=== PATIENT | male | born 1935 | race Caucasian/White ===

== ENCOUNTER 2017-05-23 05:41 | Emergency (ER) | payer MEDICARE, MEDICAID ==
--- NOTE | 2017-05-23 06:07 | EDM.PDOC ---
<Concepcion Joyce - Last Filed: 05/23/17 06:16> ED HPI GENERAL MEDICAL PROBLEM - General Chief Complaint: Back Pain or Injury Stated Complaint: BACK AND SIDE PAIN Time Seen by Provider: 05/23/17 06:00 Source of Information: Reports: Patient History Limitations: Reports: No Limitations - History of Present Illness INITIAL COMMENTS - FREE TEXT/NARRATIVE: c/o sudden onset of right flank pain that woke him from sleep, worse with movement getting out of bed and putting on shoes. 10/10 at onset, now 5/10 after taking 2 aspirin and rubbing "arther" cream on it. Hx back problems and gets periodic cortisone injections to back.Usual pain lower right and into hip. Denies any change in activity, no recent falls. 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 Right Middle Back Pain Score (Numeric/FACES): 5 - Related Data Allergies Allergy/AdvReac Type Severity Reaction Status Date / Time No Known Allergies Allergy Verified 05/23/17 05:54 Home Meds: Home Meds Amiodarone [Cordarone] 200 mg PO DAILY 04/20/16 [History] Balsalazide Disodium 750 mg PO BID 04/20/16 [History] Folic Acid 1 mg PO DAILY 04/20/16 [History] Furosemide 20 mg PO DAILY 04/20/16 [History] Gabapentin [Neurontin] 300 mg ORAL.INH DAILY 04/20/16 [History] Metoprolol Tartrate 25 mg PO DAILY 04/20/16 [History] Nitroglycerin 0.4 mg SL ASDIRECTED PRN 04/20/16 [History] Omeprazole 20 mg PO DAILY 04/20/16 [History] Simvastatin [Zocor] 10 mg PO BEDTIME 04/20/16 [History] Past Medical History HEENT History: Reports: Hard of Hearing, Impaired Vision Cardiovascular History: Reports: Heart Failure, High Cholesterol, Hypertension Gastrointestinal History: Reports: Colon Polyp Musculoskeletal History: Reports: Back Pain, Chronic Other Musculoskeletal History: crushed vertabrea Neurological History: Reports: Migraines - Past Surgical History Cardiovascular Surgical History: Reports: Coronary Artery Stent, Pacer GI Surgical History: Reports: Appendectomy Musculoskeletal Surgical History: Reports: Other (See Below) Other Musculoskeletal Surgeries/Procedures:: 2 back surgeries Social & Family History - Tobacco Use Smoking Status *Q: Never Smoker Second Hand Smoke Exposure: No - Caffeine Use Caffeine Use: Reports: Coffee - Recreational Drug Use Recreational Drug Use: No ED ROS GENERAL - Review of Systems Review Of Systems: ROS reveals no pertinent complaints other than HPI. Constitutional: Denies: Fever, Chills, Weakness ED EXAM,LOWER BACK PAIN/INJURY - Physical Exam Exam: See Below Exam Limited By: No Limitations General Appearance: Alert, Obese Eye Exam: Bilateral Eye: EOMI (glasses) Ears: Hearing Loss Throat/Mouth: Normal Inspection Head: Atraumatic, Normocephalic Neck: Normal Inspection Respiratory/Chest: No Respiratory Distress, Lungs Clear, Normal Breath Sounds Cardiovascular: Normal Peripheral Pulses, Regular Rate, Rhythm GI/Abdominal: Normal Bowel Sounds, Soft, Non-Tender Back Exam: Paraspinal Tenderness (rigt). No: CVA Tenderness (L), CVA Tenderness (R), Vertebral Tenderness Extremities: Normal Inspection, Normal Range of Motion, Non-Tender. No: Leg Pain Neurological: Alert, Normal Mood/Affect, Oriented x 3. No: Straight Leg Raise ( L), Straight Leg Raise (R), Saddle Anesthesia, Difficulty Walking Psychiatric: Normal Affect Skin Exam: Warm, Dry, Intact, Normal Color Course - Vital Signs Last Recorded V/S: Last Vital Signs Temp 97.7 F 05/23/17 06:36 Pulse 60 05/23/17 06:36 Resp 16 05/23/17 06:36 BP 128/71 05/23/17 06:37 Pulse Ox 96 05/23/17 06:36 - Orders/Labs/Meds Orders: Active Orders 24 hr Category Date Time Status Orphenadrine [Norflex] Med 05/23/17 07:45 Active 60 mg IM Q12H Medication Orders Orphenadrine Citrate (Norflex) 60 mg IM Q12H [facility] Last Admin: 05/23/17 07:43 Dose: 60 mg Labs: Laboratory Tests 05/23/17 Range/Units 05:55 Urine Color Dark yellow (YELLOW) Urine Appearance Cloudy (CLEAR) Urine pH 6.5 (5.0-9.0) Ur Specific [place] 1.025 (1.005-1.030) Urine Protein Negative (NEGATIVE) Urine Glucose (UA) Negative (NEGATIVE) Urine Ketones Negative (NEGATIVE) Urine Occult Blood Negative (NEGATIVE) Urine Nitrite Negative (NEGATIVE) Urine Bilirubin Negative (NEGATIVE) Urine Urobilinogen 0.2 (0.2-1.0) mg/dL Ur Leukocyte Esterase Negative (NEGATIVE) Urine RBC 0-5 /HPF Urine WBC 0-5 (0-5/HPF) /HPF Ur Epithelial Cells Few /HPF Urine Bacteria Rare (0-FEW/HPF) /HPF Hyaline Casts Few H /LPF Urine Mucus Many H /LPF Urine Yeast Rare H (0/HPF) /HPF Meds: Medications Generic Name Dose Route Start Last Admin Trade Name Freq PRN Reason Stop Dose Admin Orphenadrine Citrate 60 mg 05/23/17 07:45 05/23/17 07:43 Norflex IM 60 mg Q12H JESÚS Administration Discontinued Medications Generic Name Dose Route Start Last Admin Trade Name Freq PRN Reason Stop Dose Admin Ketorolac Tromethamine 60 mg 05/23/17 07:31 05/23/17 07:40 Toradol IM 05/23/17 07:32 60 mg ONETIME ONE Administration Oxycodone/Acetaminophen 1 tab 05/23/17 07:30 Percocet 325-5 Mg PO 05/23/17 07:31 ONETIME ONE Departure - Departure Disposition: Home, Self-Care 01 Clinical Impression: Chronic back pain Qualifiers: Back pain location: low back pain Back pain laterality: right Sciatica presence : without sciatica Qualified Code(s): M54.5 - Low back pain; G89.29 - Other chronic pain; G89.29 - Other chronic pain - Discharge Information Instructions: Back Pain, Adult, [id number], Muscle Strain, [id number] Forms: ED Department Discharge Additional Instructions: Follow up with your primary care facility for your injections. Ibuprofen as directed for pain. Be sure to take with food. Rest, ice and heat to the area as tolerated. - My Orders Last 24 Hours: My Active Orders 05/23/17 07:45 Orphenadrine [Norflex] 60 mg IM Q12H - Assessment/Plan Last 24 Hours: My Active Orders 05/23/17 07:45 Orphenadrine [Norflex] 60 mg IM Q12H <Marva Acevedo - Last Filed: 05/23/17 07:52> Departure - Departure Time of Disposition: 07:50
[2017-05-23 06:37] VITALS: BP 128/71
[2017-05-23] MEDS ORDERED: Acetaminophen/oxyCODONE 325-5 MG Tab PO ONE (07:30)
[2017-05-23] MEDS ORDERED: Ketorolac 30 MG/ML SDV IM ONE (07:31)
== END 2017-05-23 08:06 | disposition home or self-care (01) ==
LOC: DL.ED 05:41
DX: G89.29 Other chronic pain (principal); M54.5 Low back pain; I11.0 Hypertensive heart disease with heart failure; I50.9 Heart failure, unspecified; Z79.899 Other long term (current) drug therapy
CPT/HCPCS: 72131; 81001; 96372; 99284; J1885; J2360; 99283

== ENCOUNTER 2017-10-11 14:16 | Emergency (ER) | payer MEDICARE, MEDICAID ==
[2017-10-11 14:23] VITALS: BP 129/77
[2017-10-11] MEDS ORDERED: Dexamethasone 4 MG/ML SDV IM ONE (15:00)
--- NOTE | 2017-10-11 15:34 | EDM.PDOC ---
Scribed by Anitra Salgado 10/11/17 1534 for Rober Silva MD ED HPI GENERAL MEDICAL PROBLEM - General Chief Complaint: Lower Extremity Injury/Pain Stated Complaint: RT HIP PAIN Time Seen by Provider: 10/11/17 14:49 Source of Information: Reports: Patient, RN, RN Notes Reviewed History Limitations: Reports: No Limitations - History of Present Illness INITIAL COMMENTS - FREE TEXT/NARRATIVE: Patient presents to ER with complaint of right hip pain without acute injury. Patient with long history of lumbar disease and underwent epidural steroid injections June 2017. 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 Pain radiates through the buttock to the right foot. Denies loss of bowel or bladder control, saddle numbness or motor weakness. Onset: Gradual Duration: Constant, Getting Worse Location: Reports: Lower Extremity, Right Quality: Reports: Ache, Same as Previous Episode Severity: Severe Improves with: Reports: None Worsens with: Reports: None, Movement Associated Symptoms: Reports: No Other Symptoms Right Hip Pain Score (Numeric/FACES): 10 - Related Data Allergies Allergy/AdvReac Type Severity Reaction Status Date / Time No Known Allergies Allergy Verified 10/11/17 14:26 Home Meds: Home Meds Amiodarone [Cordarone] 200 mg PO DAILY 04/20/16 [History] Balsalazide Disodium 750 mg PO BID 04/20/16 [History] Folic Acid 1 mg PO DAILY 04/20/16 [History] Furosemide 20 mg PO DAILY 04/20/16 [History] Gabapentin [Neurontin] 300 mg ORAL.INH DAILY 04/20/16 [History] Metoprolol Tartrate 25 mg PO DAILY 04/20/16 [History] Nitroglycerin 0.4 mg SL ASDIRECTED PRN 04/20/16 [History] Omeprazole 20 mg PO DAILY 04/20/16 [History] Simvastatin [Zocor] 10 mg PO BEDTIME 04/20/16 [History] Past Medical History HEENT History: Reports: Hard of Hearing, Impaired Vision Cardiovascular History: Reports: Heart Failure, High Cholesterol, Hypertension Gastrointestinal History: Reports: Colon Polyp Musculoskeletal History: Reports: Back Pain, Chronic Other Musculoskeletal History: crushed vertabrea Neurological History: Reports: Migraines - Past Surgical History Cardiovascular Surgical History: Reports: Coronary Artery Stent, Pacer GI Surgical History: Reports: Appendectomy Musculoskeletal Surgical History: Reports: Other (See Below) Other Musculoskeletal Surgeries/Procedures:: 2 back surgeries Social & Family History - Family History Family Medical History: Noncontributory - Tobacco Use Smoking Status *Q: Never Smoker Second Hand Smoke Exposure: No - Caffeine Use Caffeine Use: Reports: Coffee - Recreational Drug Use Recreational Drug Use: No Review of Systems - Review of Systems Review Of Systems: ROS reveals no pertinent complaints other than HPI. ED EXAM, GENERAL - Physical Exam Exam: See Below Exam Limited By: No Limitations General Appearance: Alert, WD/WN, No Apparent Distress, Obese Head: Atraumatic, Normocephalic Neck: Normal Inspection, Supple, Non-Tender, Full Range of Motion Respiratory/Chest: No Respiratory Distress, Lungs Clear, Normal Breath Sounds, No Accessory Muscle Use, Chest Non-Tender Cardiovascular: Normal Peripheral Pulses, Regular Rate, Rhythm, No Edema, No Gallop, No JVD, No Murmur, No Rub GI/Abdominal: Normal Bowel Sounds, Soft, Non-Tender, No Distention, No Abnormal Bruit (Male) Exam: Deferred Rectal (Males) Exam: Deferred Back Exam: Decreased Range of Motion (lumbar/LS), Muscle Spasm, Paraspinal Tenderness. No: CVA Tenderness (L), CVA Tenderness (R), Vertebral Tenderness Extremities: Normal Inspection, Normal Range of Motion, Non-Tender, Normal Capillary Refill, No Pedal Edema Neurological: Alert, Oriented, Normal Cognition, No Motor/Sensory Deficits, Other (antalgic gait due to pain. Positive right straight leg raise. ) Psychiatric: Normal Affect, Normal Mood Skin Exam: Warm, Dry, Intact, Normal Color, No Rash Course - Vital Signs Last Recorded V/S: Last Vital Signs Temp 36.6 C 10/11/17 14:21 Pulse 62 10/11/17 14:21 Resp 16 10/11/17 14:21 BP 129/77 10/11/17 14:21 Pulse Ox 97 10/11/17 14:21 - Orders/Labs/Meds Orders: Active Orders 24 hr Category Date Time Status Hip Min 2V or 3V w Pelvis Rt [CR] Stat Exams 10/11/17 14:55 Ordered Lumbar Spine 2 or 3V [CR] Stat Exams 10/11/17 14:55 Taken Meds: Medications Discontinued Medications Generic Name Dose Route Start Last Admin Trade Name Freq PRN Reason Stop Dose Admin Dexamethasone 10 mg 10/11/17 15:00 10/11/17 15:26 Dexamethasone IM 10/11/17 15:01 10 mg ONETIME ONE Administration Orphenadrine Citrate 60 mg 10/11/17 14:59 10/11/17 15:27 Norflex IM 10/11/17 15:00 60 mg ONETIME ONE Administration - Radiology Interpretation Free Text/Narrative:: Lumbar spine x-ray: No fractures. No acute compression. Chronic degenerative changes. See rad report. Right hip and pelvis: No fracture.Mild chronic arthritic changes. See rad report. Departure - Departure Time of Disposition: 15:27 Disposition: Home, Self-Care 01 Condition: Fair Clinical Impression: Lumbar radiculopathy - Discharge Information Instructions: Sciatica, [id number] Forms: ED Department Discharge Additional Instructions: RX: Hydrocodone 5mg/325mg. *DO NOT DRIVE OR OPERATE equipment while under the influence of this medication. Use a stool softener and/or eat prunes to avoid constipation while taking the pain medication. RX: Decadron 4mg. RX: Orpheradrine 100mg. Follow up with your primary doctor for recheck next week. - My Orders Last 24 Hours: My Active Orders 10/11/17 14:55 Hip Min 2V or 3V w Pelvis Rt [CR] Stat Lumbar Spine 2 or 3V [CR] Stat - Assessment/Plan Last 24 Hours: My Active Orders 10/11/17 14:55 Hip Min 2V or 3V w Pelvis Rt [CR] Stat Lumbar Spine 2 or 3V [CR] Stat I have read and agree with the documentation that has been completed regarding this visit. By signing this record, I attest that the documentation was completed in my physical presence and is an accurate record of the encounter.
== END 2017-10-11 15:46 | disposition home or self-care (01) ==
LOC: DL.ED 14:16
DX: M54.16 Radiculopathy, lumbar region (principal); I11.0 Hypertensive heart disease with heart failure; I50.9 Heart failure, unspecified; E78.00 Pure hypercholesterolemia, unspecified; Z79.899 Other long term (current) drug therapy
CPT/HCPCS: 72100; 73502; 96372; 99283; J1100; J2360

== ENCOUNTER 2018-02-28 06:55 | Emergency (ER) | payer MEDICARE, MEDICAID ==
[2018-02-28] MEDS ORDERED: Aspirin 81 MG Tab.Chew PO ONE (07:01)
[2018-02-28] MEDS ORDERED: Sodium Chloride 0.9% 10 ML Syringe FLUSH PRN (07:02)
[2018-02-28 07:04] VITALS: BP 141/82
[2018-02-28 07:59] LABS: ANION GAP 10.8; CHLORIDE,CL 106 mmol/L (101-111); SODIUM,NA 139 mmol/L (135-145)
[2018-02-28] MEDS ORDERED: Ketorolac 30 MG/ML SDV IVPUSH ONE (08:03)
--- NOTE | 2018-02-28 08:05 | EDM.PDOC ---
ED HPI GENERAL MEDICAL PROBLEM - General Chief Complaint: Chest Pain Stated Complaint: PAIN IN BACK TO SHOULDERS AND FRONT Time Seen by Provider: 02/28/18 07:15 Source of Information: Reports: Patient, RN, RN Notes Reviewed History Limitations: Reports: No Limitations - History of Present Illness INITIAL COMMENTS - FREE TEXT/NARRATIVE: Patient presents to ER with complaint of pain in the back for "a while" Today increased pain in back, shoulders to chest and neck. This began at 0530. Rates pain 10/10 this morning, 5/10 right now. States he has not worked for 2 days. He was driving a tractor 2 days ago. Onset: Today, Gradual Duration: Constant Location: Reports: Back Quality: Reports: Ache Severity: Moderate Improves with: Reports: None Worsens with: Reports: None Associated Symptoms: Reports: No Other Symptoms Bilateral Shoulder Pain Score (Numeric/FACES): 6 - Related Data Allergies Allergy/AdvReac Type Severity Reaction Status Date / Time No Known Allergies Allergy Verified 02/28/18 07:04 Home Meds: Home Meds Amiodarone [Cordarone] 200 mg PO DAILY 04/20/16 [History] Balsalazide Disodium 750 mg PO BID 04/20/16 [History] Folic Acid 1 mg PO DAILY 04/20/16 [History] Furosemide 20 mg PO DAILY 04/20/16 [History] Gabapentin [Neurontin] 300 mg ORAL.INH DAILY 04/20/16 [History] Metoprolol Tartrate 25 mg PO DAILY 04/20/16 [History] Nitroglycerin 0.4 mg SL ASDIRECTED PRN 04/20/16 [History] Omeprazole 20 mg PO DAILY 04/20/16 [History] Simvastatin [Zocor] 10 mg PO BEDTIME 04/20/16 [History] Past Medical History HEENT History: Reports: Hard of Hearing, Impaired Vision Cardiovascular History: Reports: Heart Failure, High Cholesterol, Hypertension Gastrointestinal History: Reports: Colon Polyp Musculoskeletal History: Reports: Back Pain, Chronic Other Musculoskeletal History: crushed vertabrea Neurological History: Reports: Migraines - Past Surgical History Cardiovascular Surgical History: Reports: Coronary Artery Stent, Pacer GI Surgical History: Reports: Appendectomy Musculoskeletal Surgical History: Reports: Other (See Below) Other Musculoskeletal Surgeries/Procedures:: 2 back surgeries Social & Family History - Family History Family Medical History: Noncontributory - Tobacco Use Smoking Status *Q: Never Smoker Second Hand Smoke Exposure: No - Caffeine Use Caffeine Use: Reports: Coffee - Recreational Drug Use Recreational Drug Use: No ED ROS GENERAL - Review of Systems Review Of Systems: ROS reveals no pertinent complaints other than HPI. ED EXAM, GENERAL - Physical Exam Exam: See Below Exam Limited By: No Limitations General Appearance: Alert, WD/WN, No Apparent Distress Eye Exam: Bilateral Eye: EOMI, Normal Inspection, PERRL Ears: Normal External Exam, Normal Canal, Hearing Grossly Normal, Normal TMs Nose: Normal Inspection, Normal Mucosa, No Blood Throat/Mouth: Normal Inspection, Normal Lips, Normal Teeth, Normal Gums, Normal Oropharynx, Normal Voice, No Airway Compromise Head: Atraumatic, Normocephalic Neck: Other (tense tender bilateral) Respiratory/Chest: No Respiratory Distress, Lungs Clear, Normal Breath Sounds, No Accessory Muscle Use, Chest Non-Tender Cardiovascular: Normal Peripheral Pulses, Regular Rate, Rhythm, No Edema, No Gallop, No JVD, No Murmur, No Rub GI/Abdominal: Normal Bowel Sounds, Soft, Non-Tender, No Organomegaly, No Distention, No Abnormal Bruit, No Mass (Male) Exam: Deferred Rectal (Males) Exam: Deferred Extremities: Other (muscle tension shoulders/neck) Neurological: Alert, Oriented, CN II-XII Intact, Normal Cognition, Normal Gait, Normal Reflexes, No Motor/Sensory Deficits Psychiatric: Normal Affect, Normal Mood Skin Exam: Warm, Dry, Intact, Normal Color, No Rash Lymphatic: No Adenopathy EKG INTERPRETATION EKG Date: 02/28/18 Time: 06:59 Rhythm: Other (atrial sensed, Vent paced) Rate (Beats/Min): 60 Comparison: No Change Course - Vital Signs Last Recorded V/S: Last Vital Signs Temp 97 F 02/28/18 06:58 Pulse 78 02/28/18 06:58 Resp 18 02/28/18 06:58 BP 141/82 H 02/28/18 06:58 Pulse Ox 95 02/28/18 06:58 - Orders/Labs/Meds Orders: Active Orders 24 hr Category Date Time Status EKG Documentation Completion [RC] STAT Care 02/28/18 07:02 Active Peripheral IV Care [RC] . DIRECTED Care 02/28/18 07:03 Active Chest 1V Frontal [CR] Stat Exams 02/28/18 07:03 Taken Peripheral IV Insertion Adult [OM.PC] Stat Oth 02/28/18 07:02 Ordered Labs: Laboratory Tests 02/28/18 02/28/18 Range/Units 07:12 07:12 WBC 5.7 (5.0-10.0) 10^3/uL RBC 4.66 (4.6-6.2) 10^6/uL Hgb 13.9 L (14.0-18.0) g/dL Hct 43.2 (40.0-54.0) % MCV 92.7 (80-100) fL MCH 29.8 (27.0-34.0) pg MCHC 32.2 L (33.0-35.0) g/dL Plt Count 180 (150-450) 10^3/uL Neut % (Auto) 55.2 (42.2-75.2) % Lymph % (Auto) 28.7 (20.5-50.1) % [place] % (Auto) 10.3 H (2-8) % Eos % (Auto) 5.4 H (1.0-3.0) % Baso % (Auto) 0.4 (0.0-1.0) % Sodium 139 (135-145) mmol/L Potassium 3.8 (3.6-5.0) mmol/L Chloride 106 (101-111) mmol/L Carbon Dioxide 26.0 (21.0-31.0) mmol/L Anion Gap 10.8 BUN 13 (7-18) mg/dL Creatinine 0.8 (0.6-1.3) mg/dL Est Cr Clr Drug Dosing 77.13 mL/min Estimated GFR (MDRD) > 60 BUN/Creatinine Ratio 16.25 Glucose 101 (74-105) mg/dL Calcium 8.7 (8.4-10.2) mg/dl Total Bilirubin 0.6 (0.2-1.0) mg/dL AST 25 (10-42) IU/L ALT 15 (10-60) IU/L Alkaline Phosphatase 53 (42-121) IU/L Troponin I < 0.02 (0.00-0.02) ng/ml Total Protein 6.7 (6.7-8.2) g/dl Albumin 3.7 (3.2-5.5) g/dl Globulin 3.0 Albumin/Globulin Ratio 1.23 Meds: Medications Discontinued Medications Generic Name Dose Route Start Last Admin Trade Name Freq PRN Reason Stop Dose Admin Aspirin 324 mg 02/28/18 07:01 02/28/18 07:14 Aspirin PO 02/28/18 07:02 324 mg ONETIME ONE Administration Ketorolac Tromethamine 30 mg 02/28/18 08:03 02/28/18 08:14 Toradol IVPUSH 02/28/18 08:04 30 mg ONETIME ONE Administration Orphenadrine Citrate 60 mg 02/28/18 08:15 02/28/18 08:15 Norflex IM 60 mg Q12H JESÚS Administration Sodium Chloride 10 ml 02/28/18 07:02 02/28/18 07:14 Saline Flush FLUSH 10 ml ASDIRECTED PRN Administration Keep Vein Open - Radiology Interpretation Free Text/Narrative:: Chest xray: IMPRESSION: No acute abnormality. Thank you for allowing us to participate in the care of your patient. Dictated and Authenticated by: Chivo Mike MD 02/28/2018 8:29 AM Central Time ([place] & [place]) See rad report Departure - Departure Time of Disposition: 08:44 Disposition: Home, Self-Care 01 Condition: Fair Clinical Impression: Muscle strain Instructions: RICE for Routine Care of Injuries, [id number], Muscle Strain, [id number] Referrals: Ros Hood PA [Primary Care Provider] - Forms: ED Department Discharge Additional Instructions: RX: Norflex Follow up with your primary care facility Ice and heat the area as tolerated - My Orders Last 24 Hours: My Active Orders 02/28/18 07:02 EKG Documentation Completion [RC] STAT Peripheral IV Insertion Adult [OM.PC] Stat 02/28/18 07:03 Peripheral IV Care [RC] . DIRECTED Chest 1V Frontal [CR] Stat - Assessment/Plan Last 24 Hours: My Active Orders 02/28/18 07:02 EKG Documentation Completion [RC] STAT Peripheral IV Insertion Adult [OM.PC] Stat 02/28/18 07:03 Peripheral IV Care [RC] . DIRECTED Chest 1V Frontal [CR] Stat
== END 2018-02-28 09:05 | disposition home or self-care (01) ==
LOC: DL.ED 06:55
DX: S46.911A Strain of unspecified muscle, fascia and tendon at shoulder and upper arm level, right arm, initial encounter (principal); S46.912A Strain of unspecified muscle, fascia and tendon at shoulder and upper arm level, left arm, initial encounter; S16.1XXA Strain of muscle, fascia and tendon at neck level, initial encounter; I11.0 Hypertensive heart disease with heart failure; I50.9 Heart failure, unspecified; E78.00 Pure hypercholesterolemia, unspecified; Z79.899 Other long term (current) drug therapy; X58.XXXA Exposure to other specified factors, initial encounter
CPT/HCPCS: 36415; 71045; 80053; 84484; 85025; 93005; 96372; 96374; 99285; A9270; J1885; J2360; J7050

== ENCOUNTER 2019-05-10 10:13 | Emergency (ER) | payer MEDICARE, MEDICAID ==
[2019-05-10 10:48] VITALS: BP 138/86; PULSE 66
--- NOTE | 2019-05-10 11:09 | CR ---
EXAMINATION: Chest 2V SEX: Male AGE: 83 years CLINICAL HISTORY: 83-year-old male with cough. Comparison exam 28 February 2018. INTERPRETATION: Chronic mild shaggy accentuation perihilar lung markings unchanged since 28 February 2018 exam. 2. Cardiac pacemaker (2 leads intact and also unchanged). 3. Normal cardiac silhouette without pulmonary vascular congestion, cephalization, alveolar edema or dependent new pleural fluid accumulation. 4. No new lung mass or hilar lymphadenopathy. 5. Chronic hypertrophic arthritic changes dorsal spine. 6. No focal lobar pneumonia, atelectasis or collapse. 7. No pneumothorax or pneumomediastinum. CONCLUSION: Chronic bronchitis. No new signs of heart failure lung mass or lobar pneumonia.
--- NOTE | 2019-05-10 11:12 | CR ---
EXAMINATION: Sinus Comp Min 3V SEX: Male AGE: 83 years CLINICAL HISTORY: 83-year-old male complaining of sinus pain/pressure and bleeding. INTERPRETATION: 3 views) 1. Symmetric clear pneumatization of the paranasal (frontal, ethmoid, sphenoid and maxillary) sinuses. 2. No mucoperiosteal inflammation, antral mass lesion, or pathologic air-fluid levels. 3. Nasal septum is straight in the midline. 4. No foreign bodies. 5. Edentulous maxilla. Facet joint and atlantoaxial sclerosis. Upper cervical spine the unremarkable. 6. Subtle asymmetric sclerosis mastoid sinus on the left. Normal appearance right mastoid sinus. CONCLUSION: Negative paranasal sinus exam.
[2019-05-10 11:41] LABS: ANION GAP 11.3; CHLORIDE,CL 105 mmol/L (101-111); SODIUM,NA 140 mmol/L (135-145)
--- NOTE | 2019-05-10 11:48 | EDM.PDOC ---
ED HPI GENERAL MEDICAL PROBLEM - General Chief Complaint: General Stated Complaint: SINUS, CHECKED OUT SINUS BLEEDING AGAIN Time Seen by Provider: 05/10/19 11:20 Source of Information: Reports: Patient, Old Records, RN, RN Notes Reviewed History Limitations: Reports: No Limitations - History of Present Illness INITIAL COMMENTS - FREE TEXT/NARRATIVE: Patient presents with frontal sinus pressure and bleeding from his nares. Blood appears only when wiping his nose, no clots. Daughter recently going to [place] for and thought he should be checked by a doctor before he makes the trip. Denies fever, chills, chest pain, or edema. He does admit to mild cough, but no wheezing or sputum production. Duration: Chronic, Constant Location: Reports: Head, Face Quality: Reports: Ache, Burning Severity: Moderate Improves with: Reports: None Worsens with: Reports: None Associated Symptoms: Reports: No Other Symptoms - Related Data Allergies Allergy/AdvReac Type Severity Reaction Status Date / Time No Known Allergies Allergy Verified 04/20/19 10:19 Home Meds: Home Meds Amiodarone [Cordarone] 200 mg PO DAILY 04/20/16 [History] Balsalazide Disodium 750 mg PO BID 04/20/16 [History] Folic Acid 1 mg PO DAILY 04/20/16 [History] Furosemide 20 mg PO DAILY 04/20/16 [History] Gabapentin [Neurontin] 300 mg ORAL.INH DAILY 04/20/16 [History] Metoprolol Tartrate 25 mg PO DAILY 04/20/16 [History] Nitroglycerin 0.4 mg SL ASDIRECTED PRN 04/20/16 [History] Omeprazole 20 mg PO DAILY 04/20/16 [History] Simvastatin [Zocor] 20 mg PO BEDTIME 04/20/16 [History] Balsalazide Disodium 750 mg PO TID 04/20/19 [History] Donepezil HCl 10 mg PO DAILY 04/20/19 [History] Fluticasone Propionate [Flonase] 2 spray IH DAILY 04/20/19 [History] Montelukast Sodium [Singulair] 10 mg PO BEDTIME 04/20/19 [History] Warfarin Sodium [Jantoven] 10 mg PO ASDIRECTED 04/20/19 [History] Past Medical History HEENT History: Reports: Hard of Hearing, Impaired Vision, Sinusitis Cardiovascular History: Reports: Heart Failure, High Cholesterol, Hypertension, Pacemaker Gastrointestinal History: Reports: Colon Polyp Musculoskeletal History: Reports: Back Pain, Chronic Other Musculoskeletal History: crushed vertabrea Neurological History: Reports: Migraines Endocrine/Metabolic History: Reports: Obesity/BMI 30+ - Past Surgical History Cardiovascular Surgical History: Reports: Coronary Artery Stent, Pacer GI Surgical History: Reports: Appendectomy, Colonoscopy Musculoskeletal Surgical History: Reports: Other (See Below) Other Musculoskeletal Surgeries/Procedures:: 2 back surgeries Social & Family History - Family History Family Medical History: Noncontributory - Tobacco Use Smoking Status *Q: Never Smoker - Caffeine Use Caffeine Use: Reports: Coffee - Recreational Drug Use Recreational Drug Use: No - Living Situation & Occupation Occupation: Other ([employer]) ED ROS GENERAL - Review of Systems Review Of Systems: Comprehensive ROS is negative, except as noted in HPI. ED EXAM, GENERAL - Physical Exam Exam: See Below Exam Limited By: No Limitations General Appearance: Alert, WD/WN, No Apparent Distress, Anxious Eye Exam: Bilateral Eye: Normal Inspection Ears: Normal External Exam, Normal Canal, Hearing Grossly Normal, Normal TMs Nose: Other (Dry nasal mucosa, no active bleeding, no dried blood. Mildly inflammed nasal mucosa, no drainage.) Throat/Mouth: Normal Inspection, Normal Lips, Normal Teeth, Normal Gums, Normal Oropharynx, Normal Voice, No Airway Compromise Head: Atraumatic, Normocephalic Neck: Normal Inspection, Supple, Non-Tender, Full Range of Motion Respiratory/Chest: No Respiratory Distress, Lungs Clear, Normal Breath Sounds, No Accessory Muscle Use, Chest Non-Tender Cardiovascular: Regular Rate, Rhythm, No Edema GI/Abdominal: Normal Bowel Sounds, Soft, Non-Tender, No Distention Back Exam: Normal Inspection Extremities: Normal Inspection, Normal Range of Motion, Non-Tender, No Pedal Edema, Normal Capillary Refill Neurological: Alert, Oriented, Normal Cognition, No Motor/Sensory Deficits Psychiatric: Anxious Skin Exam: Warm, Dry, Intact, Normal Color, No Rash Course - Vital Signs Last Recorded V/S: Last Vital Signs Temp 97.4 F 05/10/19 10:44 Pulse 66 05/10/19 10:44 Resp 14 05/10/19 10:44 BP 138/86 05/10/19 10:44 Pulse Ox 98 05/10/19 10:44 - Orders/Labs/Meds Labs: Laboratory Tests 05/10/19 05/10/19 05/10/19 Range/Units 10:40 10:40 10:40 WBC 7.8 (5.0-10.0) 10^3/uL RBC 4.75 (4.6-6.2) 10^6/uL Hgb 14.5 (14.0-18.0) g/dL Hct 43.6 (40.0-54.0) % MCV 91.8 (80-100) fL MCH 30.5 (27.0-34.0) pg MCHC 33.3 (33.0-35.0) g/dL Plt Count 191 (150-450) 10^3/uL Neut % (Auto) 62.2 (42.2-75.2) % Lymph % (Auto) 18.1 L (20.5-50.1) % [place] % (Auto) 13.9 H (2-8) % Eos % (Auto) 5.4 H (1.0-3.0) % Baso % (Auto) 0.4 (0.0-1.0) % PT 25.6 H (9.0-12.0) SEC INR 2.6 H (0.9-1.2) Sodium 140 (135-145) mmol/L Potassium 4.3 (3.6-5.0) mmol/L Chloride 105 (101-111) mmol/L Carbon Dioxide 28.0 (21.0-31.0) mmol/L Anion Gap 11.3 BUN 17 (7-18) mg/dL Creatinine 0.9 (0.6-1.3) mg/dL Est Cr Clr Drug Dosing 65.34 mL/min Estimated GFR (MDRD) > 60 BUN/Creatinine Ratio 18.88 Glucose 96 (74-105) mg/dL Calcium 9.2 (8.4-10.2) mg/dl Total Bilirubin 1.1 H (0.2-1.0) mg/dL AST 27 (10-42) IU/L ALT 18 (10-60) IU/L Alkaline Phosphatase 52 (42-121) IU/L Total Protein 7.3 (6.7-8.2) g/dl Albumin 3.8 (3.2-5.5) g/dl Globulin 3.5 Albumin/Globulin Ratio 1.09 Departure - Departure Time of Disposition: 11:50 Disposition: Home, Self-Care 01 Condition: Good Clinical Impression: Nasal dryness, Sinus pain - Discharge Information *PRESCRIPTION DRUG MONITORING PROGRAM REVIEWED*: No *COPY OF PRESCRIPTION DRUG MONITORING REPORT IN PATIENT UYEN: No Forms: ED Department Discharge Additional Instructions: Use an over the counter nasal saline spray for moisturization. Follow up in clinic if not improving in 1 week.
== END 2019-05-10 11:58 | disposition home or self-care (01) ==
LOC: DL.ED 10:13
DX: J34.89 Other specified disorders of nose and nasal sinuses (principal); I11.0 Hypertensive heart disease with heart failure; I50.9 Heart failure, unspecified; E66.9 Obesity, unspecified; E78.00 Pure hypercholesterolemia, unspecified; Z68.34 Body mass index [BMI] 34.0-34.9, adult; Z79.01 Long term (current) use of anticoagulants; Z79.899 Other long term (current) drug therapy; Z95.0 Presence of cardiac pacemaker
CPT/HCPCS: 36415; 71046; 80053; 85025; 85610; 99282; 99283-25

== ENCOUNTER 2019-08-08 11:57 | Emergency (ER) | payer MEDICARE, MEDICAID ==
[2019-08-08] MEDS ORDERED: cefTRIAXone 1 GM, Lidocaine 1% 2.1 ML IM ONE ×2 (14:02)
--- NOTE | 2019-08-08 14:09 | EDM.PDOC ---
Scribed by Anitra Salgado 08/08/19 8800 for Rober Silva MD ED HPI GENERAL MEDICAL PROBLEM - General Chief Complaint: ENT Problem Stated Complaint: BAD SINUS Time Seen by Provider: 08/08/19 13:57 Source of Information: Reports: Patient, RN, RN Notes Reviewed History Limitations: Reports: No Limitations - History of Present Illness INITIAL COMMENTS - FREE TEXT/NARRATIVE: Patient presents to ER by POV. Patient has been watching his 4-year-old grandson who has been sick. He has a sore throat and not feeling well. Onset: Gradual Duration: Day(s): (3) Quality: Reports: Ache, Pressure Severity: Moderate Improves with: Reports: None Worsens with: Reports: None Associated Symptoms: Reports: No Other Symptoms - Related Data Allergies Allergy/AdvReac Type Severity Reaction Status Date / Time No Known Allergies Allergy Verified 04/20/19 10:19 Home Meds: Home Meds Amiodarone [Cordarone] 200 mg PO DAILY 04/20/16 [History] Balsalazide Disodium 750 mg PO BID 04/20/16 [History] Folic Acid 1 mg PO DAILY 04/20/16 [History] Furosemide 20 mg PO DAILY 04/20/16 [History] Gabapentin [Neurontin] 300 mg ORAL.INH DAILY 04/20/16 [History] Metoprolol Tartrate 25 mg PO DAILY 04/20/16 [History] Nitroglycerin 0.4 mg SL ASDIRECTED PRN 04/20/16 [History] Omeprazole 20 mg PO DAILY 04/20/16 [History] Simvastatin [Zocor] 20 mg PO BEDTIME 04/20/16 [History] Balsalazide Disodium 750 mg PO TID 04/20/19 [History] Donepezil HCl 10 mg PO DAILY 04/20/19 [History] Fluticasone Propionate [Flonase] 2 spray IH DAILY 04/20/19 [History] Montelukast Sodium [Singulair] 10 mg PO BEDTIME 04/20/19 [History] Warfarin Sodium [Jantoven] 10 mg PO ASDIRECTED 04/20/19 [History] Past Medical History HEENT History: Reports: Hard of Hearing, Impaired Vision, Sinusitis Cardiovascular History: Reports: Heart Failure, High Cholesterol, Hypertension, Pacemaker Gastrointestinal History: Reports: Colon Polyp Musculoskeletal History: Reports: Back Pain, Chronic Other Musculoskeletal History: crushed vertabrea Neurological History: Reports: Migraines Endocrine/Metabolic History: Reports: Obesity/BMI 30+ - Past Surgical History Cardiovascular Surgical History: Reports: Coronary Artery Stent, Pacer GI Surgical History: Reports: Appendectomy, Colonoscopy Musculoskeletal Surgical History: Reports: Other (See Below) Other Musculoskeletal Surgeries/Procedures:: 2 back surgeries Social & Family History - Family History Family Medical History: Noncontributory - Caffeine Use Caffeine Use: Reports: Coffee - Living Situation & Occupation Occupation: Other ([employer]) ED ROS GENERAL - Review of Systems Review Of Systems: Comprehensive ROS is negative, except as noted in HPI. ED EXAM, GENERAL - Physical Exam Exam: See Below Exam Limited By: No Limitations General Appearance: Alert, WD/WN, No Apparent Distress Eye Exam: Bilateral Eye: Normal Inspection Ears: Normal External Exam, Normal Canal, Hearing Grossly Normal, Normal TMs Nose: No Blood, Nasal Drainage (Purulent and some thin clear drainage), Other ( Injected turbinates) Throat/Mouth: Normal Lips, Normal Gums, Normal Voice, No Airway Compromise, Other (Mild pharyngeal erythema) Head: Atraumatic, Normocephalic Neck: Normal Inspection, Supple, Non-Tender, Full Range of Motion. No: Lymphadenopathy (L), Lymphadenopathy (R) Respiratory/Chest: No Respiratory Distress, Lungs Clear, Normal Breath Sounds, No Accessory Muscle Use, Chest Non-Tender Cardiovascular: Regular Rate, Rhythm Extremities: Normal Inspection Neurological: Alert, Oriented, No Motor/Sensory Deficits Psychiatric: Normal Mood Skin Exam: Warm, Dry, Intact, Normal Color, No Rash Course - Orders/Labs/Meds Orders: Active Orders 24 hr Category Date Time Status Chest 2V [CR] Urgent Exams 08/08/19 13:27 Ordered Labs: Rapid Strep: negative Influenza A/B: negative Meds: Medications Discontinued Medications Generic Name Dose Route Start Last Admin Trade Name Freq PRN Reason Stop Dose Admin Ceftriaxone Sodium 1 gm/ 0 gm 08/08/19 14:02 Lidocaine HCl 2.1 ml IM 08/08/19 14:03 ONETIME ONE Departure - Departure Time of Disposition: 14:05 Disposition: Home, Self-Care 01 Condition: Good Clinical Impression: Pharyngitis Qualifiers: Pharyngitis/tonsillitis etiology: other specified organisms Qualified Code(s): J02.8 - Acute pharyngitis due to other specified organisms Sinusitis Qualifiers: Sinusitis location: unspecified location Chronicity: subacute Qualified Code(s) : J01.90 - Acute sinusitis, unspecified - Discharge Information *PRESCRIPTION DRUG MONITORING PROGRAM REVIEWED*: Not Applicable *COPY OF PRESCRIPTION DRUG MONITORING REPORT IN PATIENT UYEN: Not Applicable Instructions: Pharyngitis, Sinusitis, Adult, [id number] Forms: ED Department Discharge Additional Instructions: Rx: Augmentin 875mg [place] gargles until sore throat improves. Follow up in clinic if not improving in 3 to 5 days. Sepsis Event Note - Focused Exam Date Exam was Performed: 08/08/19 Time Exam was Performed: 14:09 - My Orders Last 24 Hours: My Active Orders 08/08/19 13:27 Chest 2V [CR] Urgent - Assessment/Plan Last 24 Hours: My Active Orders 08/08/19 13:27 Chest 2V [CR] Urgent I have read and agree with the documentation that has been completed regarding this visit. By signing this record, I attest that the documentation was completed in my physical presence and is an accurate record of the encounter.
[2019-08-08 14:26] VITALS: BP 142/63; PULSE 89
== END 2019-08-08 14:40 | disposition home or self-care (01) ==
LOC: DL.ED 11:57
DX: J01.90 Acute sinusitis, unspecified (principal); J02.8 Acute pharyngitis due to other specified organisms; I11.0 Hypertensive heart disease with heart failure; I50.9 Heart failure, unspecified; E78.00 Pure hypercholesterolemia, unspecified; E66.9 Obesity, unspecified; Z79.899 Other long term (current) drug therapy
CPT/HCPCS: 71046; 87430; 87804; 96372; 99283; J0696; J2001

== ENCOUNTER 2019-08-23 06:07 | Day surgery (SDC) | payer MEDICARE, MEDICAID ==
[~2019-08-23 06:07] MED LIST: Sodium Chloride 0.9% 10 ML Syringe FLUSH PRN
[2019-08-23] MEDS ORDERED: fentaNYL 100 MCG/2 ML SDV IV ONE (06:08)
[2019-08-23] MEDS ORDERED: Midazolam 1 MG/ML 2 ML SDV IV ONE ×2 (06:08)
[2019-08-23] MEDS ORDERED: fentaNYL 100 MCG/2 ML SDV ONE (06:13)
[2019-08-23] MEDS ORDERED: Midazolam 1 MG/ML 2 ML SDV ONE (06:13)
[2019-08-23] MEDS: Dextrose 5%-0.45% NaCl 1,000 ML IV SCH (06:36)
[2019-08-23] MEDS: fentaNYL 100 MCG/2 ML SDV IV ONE ×2 (06:54→06:56)
[2019-08-23] MEDS: Midazolam 1 MG/ML 2 ML SDV IV ONE ×3 (06:57→06:59)
--- NOTE | 2019-08-23 08:02 | OR ---
DATE: 08/23/2019 PROCEDURE: Total colonoscopy and multiple pinch biopsies. INSTRUMENT USED: PCF-H190DL Olympus video colonoscope. PREMEDICATIONS: Fentanyl 100 mcg intravenous, Versed 5 mg intravenous. Nasal O2 cannula. The procedure was done under pulse oximetry, BP recording, and counseling department chair. INDICATION: The patient with longstanding ulcerative colitis, with increasing constipation recently. Colonoscopic examination is done for detection of any polypoid lesions and removal, biopsies to be obtained for any evidence of dysplasia, endoscopic hemostasis therapy if needed. DESCRIPTION OF PROCEDURE: Initial rectal exam showed BPH. Rigid anoscopy was normal. The colonoscope was passed with ease. Scattered diverticula were noted in the distal left colon. The scope was passed with ease up to the ileocecal area. Photographs were taken of the normal-appearing cecum, identified by landmarks of appendiceal orifice and double-bulged ileocecal folds. No bleeding was noted from any of the visualized areas at the commencement of the examination. The bowel preparation was found to be adequate, [place] scale 2 in right colon, 3 in transverse and left colon, total score 8. No stricture. No vascular ectasia. No large isolated ulcerations seen. No evidence of diffuse inflammatory bowel disease in the form of friability, contact bleeding, or ulcerations. No polyp or tumor mass identified. Probing the proximal sides of folds and flexures using adequate distention and clearing up the stool material, withdrawal of the scope was made. Four-quadrant biopsies were taken at 10 cm distance apart from the cecum to rectum, tissues obtained were pooled into bags #1 cecum and ascending colon, #2 transverse colon, #3 descending colon, #4 rectosigmoid. No bleeding was noted from any of the visualized areas at the completion of examination. IMPRESSION: Diverticulosis. The patient tolerated the procedure well. [facility] [place] /[id number]
[2019-08-23 11:55] VITALS: PULSE 60
[2019-08-23 11:56] VITALS: BP 136/77
== END 2019-08-23 09:38 | disposition home or self-care (01) ==
LOC: DL.ENDO 06:07
PROVIDERS: ATTEND Internal Medicine Gastroenterology
DX: K57.30 Diverticulosis of large intestine without perforation or abscess without bleeding (principal); N40.0 Benign prostatic hyperplasia without lower urinary tract symptoms; K59.00 Constipation, unspecified; K51.90 Ulcerative colitis, unspecified, without complications; E78.5 Hyperlipidemia, unspecified; I10 Essential (primary) hypertension; E66.09 Other obesity due to excess calories; I48.0 Paroxysmal atrial fibrillation; I25.10 Atherosclerotic heart disease of native coronary artery without angina pectoris; Z95.1 Presence of aortocoronary bypass graft; Z90.49 Acquired absence of other specified parts of digestive tract; Z98.890 Other specified postprocedural states; Z95.0 Presence of cardiac pacemaker; Z68.35 Body mass index [BMI] 35.0-35.9, adult; Z79.899 Other long term (current) drug therapy
CPT/HCPCS: 45380; J2250; J3010; J7042

== ENCOUNTER 2020-03-15 11:50 | Emergency (ER) | payer MEDICARE, MEDICAID ==
[2020-03-15] MEDS ORDERED: cefTRIAXone 1 GM, Lidocaine 1% 2.1 ML IM ONE ×2 (12:24)
--- NOTE | 2020-03-15 12:28 | EDM.PDOC ---
ED HPI GENERAL MEDICAL PROBLEM - General Chief Complaint: ENT Problem Stated Complaint: SINUS Time Seen by Provider: 03/15/20 12:15 Source of Information: Reports: Patient, Old Records, RN, RN Notes Reviewed History Limitations: Reports: No Limitations - History of Present Illness INITIAL COMMENTS - FREE TEXT/NARRATIVE: Pt presents to ER with c/o sinus infection. He states that for about 2 or 3 months he has been having to use a nasal spray because he has been working in the field dust and harvest. In the past few weeks he has been combining beans and that has really flared his sinuses. He denies fever or chills. Admits to sinus headache and pressure at the face and forehead. Denies cough, chest pain, or shortness of breath. Onset: Gradual Duration: Chronic, Getting Worse Location: Reports: Other (Sinus) Quality: Reports: Pressure Severity: Moderate Improves with: Reports: None Worsens with: Reports: None Associated Symptoms: Reports: No Other Symptoms Treatments [employer]: Reports: Home Treatments - Related Data Allergies Allergy/AdvReac Type Severity Reaction Status Date / Time No Known Allergies Allergy Verified 08/23/19 06:26 Home Meds: Home Meds Amiodarone [Cordarone] 200 mg PO DAILY 04/20/16 [History] Balsalazide Disodium 750 mg PO BID 04/20/16 [History] Folic Acid 1 mg PO DAILY 04/20/16 [History] Furosemide 20 mg PO DAILY 04/20/16 [History] Gabapentin [Neurontin] 300 mg ORAL.INH DAILY 04/20/16 [History] Metoprolol Tartrate 25 mg PO DAILY 04/20/16 [History] Nitroglycerin 0.4 mg SL ASDIRECTED PRN 04/20/16 [History] Omeprazole 20 mg PO DAILY 04/20/16 [History] Simvastatin [Zocor] 20 mg PO BEDTIME 04/20/16 [History] Balsalazide Disodium 750 mg PO TID 04/20/19 [History] Donepezil HCl 10 mg PO DAILY 04/20/19 [History] Fluticasone Propionate [Flonase] 2 spray IH DAILY 04/20/19 [History] Montelukast Sodium [Singulair] 10 mg PO BEDTIME 04/20/19 [History] Warfarin Sodium [Jantoven] 10 mg PO ASDIRECTED 04/20/19 [History] Past Medical History HEENT History: Reports: Hard of Hearing, Impaired Vision, Sinusitis Cardiovascular History: Reports: Afib, Arrhythmia, CAD, Heart Failure, High Cholesterol, Hypertension, Pacemaker Respiratory History: Reports: None Gastrointestinal History: Reports: Colon Polyp, Other (See Below) Other Gastrointestinal History: ULCERATIVE COLITIS Genitourinary History: Reports: None Musculoskeletal History: Reports: Back Pain, Chronic Other Musculoskeletal History: crushed vertabrea. CYST TO SPINE REMOVED Neurological History: Reports: Migraines Psychiatric History: Reports: None Endocrine/Metabolic History: Reports: Obesity/BMI 30+ Hematologic History: Reports: Anticoagulation Therapy Immunologic History: Reports: None Oncologic (Cancer) History: Reports: None Dermatologic History: Reports: None - Infectious Disease History Infectious Disease History: Reports: Measles - Past Surgical History Head Surgeries/Procedures: Reports: None HEENT Surgical History: Reports: None Cardiovascular Surgical History: Reports: Coronary Artery Stent, Pacer GI Surgical History: Reports: Appendectomy, Colonoscopy Musculoskeletal Surgical History: Reports: Other (See Below) Other Musculoskeletal Surgeries/Procedures:: 2 back surgeries Social & Family History - Family History Family Medical History: Noncontributory - Caffeine Use Caffeine Use: Reports: Coffee Other Caffeine Use: RARE - Living Situation & Occupation Occupation: Other ([employer]) ED ROS ENT - Review of Systems Review Of Systems: Comprehensive ROS is negative, except as noted in HPI. ED EXAM, ENT - Physical Exam Exam: See Below Exam Limited By: No Limitations General Appearance: Alert, WD/WN, No Apparent Distress Eye Exam: Bilateral Eye: EOMI, Normal Inspection, PERRL Ears: Normal External Exam, Normal Canal, Hearing Grossly Normal, Normal TMs Nose: No Blood, Nasal Discharge (yellow and purulent), Nasal Swelling, Nasal Tenderness, Injected Turbinates. No: Active Bleeding Head: Atraumatic, Normocephalic, Sinus Tenderness. No: Facial Swelling Neck: Normal Inspection, Supple, Non-Tender, Full Range of Motion. No: Lymphadenopathy (L), Lymphadenopathy (R) Respiratory/Chest: No Respiratory Distress, Lungs Clear, Normal Breath Sounds, No Accessory Muscle Use, Chest Non-Tender Cardiovascular: Regular Rate, Rhythm, No Edema Neurological: Alert, Oriented, CN II-XII Intact, Normal Cognition, No Motor/Sensory Deficits Psychiatric: Normal Affect, Normal Mood Skin: Warm, Dry, Intact, Normal Color, No Rash Course - Orders/Labs/Meds Meds: Medications Discontinued Medications Generic Name Dose Route Start Last Admin Trade Name Olimpia PRN Reason Stop Dose Admin Ceftriaxone Sodium 1 gm/ 0 gm 03/15/20 12:24 Lidocaine HCl 2.1 ml IM 03/15/20 12:25 ONETIME ONE Departure - Departure Time of Disposition: 12:39 Disposition: Home, Self-Care 01 Condition: Good Clinical Impression: Sinus pain Sinusitis Qualifiers: Sinusitis location: unspecified location Chronicity: subacute Qualified Code(s): J01.90 - Acute sinusitis, unspecified - Discharge Information *PRESCRIPTION DRUG MONITORING PROGRAM REVIEWED*: Not Applicable *COPY OF PRESCRIPTION DRUG MONITORING REPORT IN PATIENT UYEN: Not Applicable Instructions: Sinusitis, Adult, [id number], How to Perform a Sinus Rinse, [id number] Forms: ED Department Discharge Additional Instructions: Rx: Augmentin 875mg Follow up in clinic next week with your primary doctor if not improving as expected.
[2020-03-15 13:18] VITALS: BP 155/91; PULSE 76
== END 2020-03-15 13:05 | disposition home or self-care (01) ==
LOC: DL.ED 11:50
DX: J01.90 Acute sinusitis, unspecified (principal); I48.91 Unspecified atrial fibrillation; I25.10 Atherosclerotic heart disease of native coronary artery without angina pectoris; E78.00 Pure hypercholesterolemia, unspecified; I11.0 Hypertensive heart disease with heart failure; I50.9 Heart failure, unspecified; E66.9 Obesity, unspecified; Z68.35 Body mass index [BMI] 35.0-35.9, adult; Z79.899 Other long term (current) drug therapy
CPT/HCPCS: 96372; 99283; J0696; J2001

== ENCOUNTER 2020-06-23 10:20 | Emergency (ER) | payer MEDICARE, MEDICAID ==
[2020-06-23 10:52] VITALS: BP 150/105; PULSE 78
[2020-06-23] MEDS ORDERED: cefTRIAXone 1 GM, Lidocaine 1% 2.1 ML IM ONE ×2 (10:54)
--- NOTE | 2020-06-23 11:02 | EDM.PDOC ---
ED HPI GENERAL MEDICAL PROBLEM - General Chief Complaint: ENT Problem Stated Complaint: SINUS INFECTION LEFT SIDE OF FACE Time Seen by Provider: 06/23/20 10:55 Source of Information: Reports: Patient, RN, RN Notes Reviewed History Limitations: Reports: No Limitations - History of Present Illness INITIAL COMMENTS - FREE TEXT/NARRATIVE: Patient presents to the ED with complaints of left-sided sinus pressure and pain. The patient reports a history of chronic sinus infection related to a nasal fracture several years ago. He states his currently symptoms began about 14 days ago and have progressively worsened to include postnasal drainage and left-sided ear pain/pressure. He states he has not been to ENT for this problem but notes his PCP has suggested he go. He denies recent illness, fever, shaking chills, palpitations, or shortness of breath. He denies tobacco, alcohol, or recreational drug use. Face/Facial Pain Score (Numeric/FACES): 4 - Related Data Allergies Allergy/AdvReac Type Severity Reaction Status Date / Time No Known Allergies Allergy Verified 06/23/20 10:52 Home Meds: Home Meds Amiodarone [Cordarone] 200 mg PO DAILY 04/20/16 [History] Balsalazide Disodium 750 mg PO BID 04/20/16 [History] Folic Acid 1 mg PO DAILY 04/20/16 [History] Furosemide 20 mg PO DAILY 04/20/16 [History] Gabapentin [Neurontin] 300 mg ORAL.INH DAILY 04/20/16 [History] Metoprolol Tartrate 25 mg PO DAILY 04/20/16 [History] Nitroglycerin 0.4 mg SL ASDIRECTED PRN 04/20/16 [History] Omeprazole 20 mg PO DAILY 04/20/16 [History] Simvastatin [Zocor] 20 mg PO BEDTIME 04/20/16 [History] Balsalazide Disodium 750 mg PO TID 04/20/19 [History] Donepezil HCl 10 mg PO DAILY 04/20/19 [History] Fluticasone Propionate [Flonase] 2 spray IH DAILY 04/20/19 [History] Montelukast Sodium [Singulair] 10 mg PO BEDTIME 04/20/19 [History] Warfarin Sodium [Jantoven] 10 mg PO ASDIRECTED 04/20/19 [History] Past Medical History HEENT History: Reports: Hard of Hearing, Impaired Vision, Sinusitis Cardiovascular History: Reports: Afib, Arrhythmia, CAD, Heart Failure, High Cholesterol, Hypertension, Pacemaker Respiratory History: Reports: None Gastrointestinal History: Reports: Colon Polyp, Other (See Below) Other Gastrointestinal History: ULCERATIVE COLITIS Genitourinary History: Reports: None Musculoskeletal History: Reports: Back Pain, Chronic Other Musculoskeletal History: crushed vertabrea. CYST TO SPINE REMOVED Neurological History: Reports: Migraines Psychiatric History: Reports: None Endocrine/Metabolic History: Reports: Obesity/BMI 30+ Hematologic History: Reports: Anticoagulation Therapy Immunologic History: Reports: None Oncologic (Cancer) History: Reports: None Dermatologic History: Reports: None - Infectious Disease History Infectious Disease History: Reports: Measles - Past Surgical History Head Surgeries/Procedures: Reports: None HEENT Surgical History: Reports: None Cardiovascular Surgical History: Reports: Coronary Artery Stent, Pacer GI Surgical History: Reports: Appendectomy, Colonoscopy Musculoskeletal Surgical History: Reports: Other (See Below) Other Musculoskeletal Surgeries/Procedures:: 2 back surgeries Social & Family History - Family History Family Medical History: No Pertinent Family History - Caffeine Use Caffeine Use: Reports: Coffee Other Caffeine Use: RARE - Living Situation & Occupation Occupation: Other ([employer]) ED ROS ENT - Review of Systems Review Of Systems: Comprehensive ROS is negative, except as noted in HPI. ED EXAM, ENT - Physical Exam Exam: See Below Exam Limited By: No Limitations General Appearance: Alert, No Apparent Distress Eye Exam: Bilateral Eye: EOMI, Normal Inspection, PERRL (3mm) Ears: Normal External Exam, Normal Canal, Normal TMs, Hearing Loss (Hearing aid in right ear). No: Mastoid Swelling, Mastoid Tenderness, TM Bulging, TM Dullness, TM Erythema, TM Blood, TM Perforation Nose: Nasal Deformity, Septal Deformity, Injected Turbinates, Other (Frontal and maxillary sinus tenderness to palpation on left). No: Nasal Discharge, Nasal Swelling, Nasal Tenderness, Nasal Ecchymosis, Septal Hematoma, Septal Perforation, Active Bleeding Mouth/Throat: Normal Inspection, Normal Gums, Normal Lips, Normal Oropharynx, Normal Teeth Head: Atraumatic, Normocephalic, Sinus Tenderness (Left maxillary and frontal sinus). No: Facial Ecchymosis, Facial Lacerations, Facial Swelling Respiratory/Chest: No Respiratory Distress, Lungs Clear, Normal Breath Sounds, No Accessory Muscle Use, Chest Non-Tender Cardiovascular: Normal Peripheral Pulses, Regular Rate, Rhythm, No Edema, No Gallop, No JVD, No Murmur, No Rub Neurological: Alert, Oriented, CN II-XII Intact, Normal Cognition, Normal Gait, No Motor/Sensory Deficits Psychiatric: Normal Affect, Normal Mood Skin: Warm, Dry, Intact, Normal Color, No Rash. No: Ecchymosis, Erythema, Jaundice, Mottled, Pallor, Petechiae Course - Vital Signs Last Recorded V/S: Last Vital Signs Temp 97.7 F 06/23/20 10:48 Pulse 78 06/23/20 10:48 Resp 20 06/23/20 10:48 BP 150/105 H 06/23/20 10:48 Pulse Ox 96 06/23/20 10:48 - Orders/Labs/Meds Meds: Medications Discontinued Medications Generic Name Dose Route Start Last Admin Trade Name Freq PRN Reason Stop Dose Admin Ceftriaxone Sodium 1 gm/ 0 gm 06/23/20 10:54 Lidocaine HCl 2.1 ml IM 06/23/20 10:55 ONETIME ONE - Re-Assessments/Exams Free Text/Narrative Re-Assessment/Exam: 06/23/20 Will treat with Rocephin 1mg and Augmentin 875. Plan of care discussed with patient who verbalized understanding and agreement. Departure - Departure Time of Disposition: 11:06 Disposition: Home, Self-Care 01 Condition: Good Clinical Impression: Chronic sinusitis Qualifiers: Sinusitis location: unspecified location Qualified Code(s): J32.9 - Chronic sinusitis, unspecified - Discharge Information *PRESCRIPTION DRUG MONITORING PROGRAM REVIEWED*: Not Applicable *COPY OF PRESCRIPTION DRUG MONITORING REPORT IN PATIENT UYEN: Not Applicable Instructions: Sinusitis, Adult, [id number] Additional Instructions: Rx: Augmentin 875mg 1.) Take all of your antibiotic until it is gone. 2.) Follow up with a primary care provider if no improvement in symptoms in 3 days or should you develop fever, shaking chills, or shortness of breath. 3.) Drink plenty of fluids to stay hydrated. Sepsis Event Note (ED) - Evaluation Sepsis Screening Result: No Definite Risk - Focused Exam Vital Signs: Vital Signs Temp Pulse Resp BP Pulse Ox 06/23/20 10:48 97.7 F 78 20 150/105 H 96
== END 2020-06-23 11:20 | disposition home or self-care (01) ==
LOC: DL.ED 10:20
DX: J32.9 Chronic sinusitis, unspecified (principal); I48.91 Unspecified atrial fibrillation; I11.0 Hypertensive heart disease with heart failure; I50.9 Heart failure, unspecified; I25.10 Atherosclerotic heart disease of native coronary artery without angina pectoris; E78.00 Pure hypercholesterolemia, unspecified; E66.9 Obesity, unspecified; Z68.34 Body mass index [BMI] 34.0-34.9, adult; Z79.899 Other long term (current) drug therapy
CPT/HCPCS: 96372; 99283; J0696; J2001

== ENCOUNTER 2021-06-17 08:27 | Emergency (ER) | payer MEDICARE, MEDICAID ==
[2021-06-17] MEDS: Ketorolac 30 MG/ML SDV IM ONE (09:45)
--- NOTE | 2021-06-17 09:53 | EDM.PDOC ---
Scribed by Anitra Salgado 06/17/21 0950 for Rober Silva MD ED HPI GENERAL MEDICAL PROBLEM - General Chief Complaint: Back Pain or Injury Stated Complaint: BACK PAIN Time Seen by Provider: 06/17/21 09:30 Source of Information: Reports: Patient, RN, RN Notes Reviewed History Limitations: Reports: No Limitations - History of Present Illness INITIAL COMMENTS - FREE TEXT/NARRATIVE: Patient presents to ED by POV stating that his chronic back pain has flared in the last 2 weeks. The pain is described as his entire back, thoracic and lumbar. He used to have occasional jabs of pain and tingling from the low back to the right knee, but claims that has not happened with this recent back pain flare up. He was worried about taking anything because he just had his pacemaker battery replaced and is on Coumadin. No fall or injury. Denies loss of bowel or bladder control, saddle area numbness, or motor weakness. Onset: Gradual Duration: Getting Worse Location: Reports: Back Severity: Severe Improves with: Reports: None Worsens with: Reports: None Associated Symptoms: Reports: No Other Symptoms - Related Data Allergies Allergy/AdvReac Type Severity Reaction Status Date / Time No Known Allergies Allergy Verified 06/17/21 09:40 Home Meds: Home Meds Folic Acid 1 mg PO DAILY 04/20/16 [History] Furosemide 20 mg PO DAILY 04/20/16 [History] Gabapentin [Neurontin] 300 mg PO TID 04/20/16 [History] Metoprolol Tartrate 25 mg PO DAILY 04/20/16 [History] Nitroglycerin 0.4 mg SL ASDIRECTED PRN 04/20/16 [History] Omeprazole 20 mg PO DAILY 04/20/16 [History] Simvastatin [Zocor] 20 mg PO BEDTIME 04/20/16 [History] Balsalazide Disodium 750 mg PO TID 04/20/19 [History] Donepezil HCl 10 mg PO BEDTIME 04/20/19 [History] Fluticasone Propionate [Flonase] 2 spray IH DAILY 04/20/19 [History] Montelukast Sodium [Singulair] 10 mg PO BEDTIME 04/20/19 [History] Warfarin Sodium [Jantoven] 10 mg PO ASDIRECTED 04/20/19 [History] Past Medical History HEENT History: Reports: Hard of Hearing, Impaired Vision, Sinusitis Cardiovascular History: Reports: Afib, Arrhythmia, CAD, Heart Failure, High Cholesterol, Hypertension, Pacemaker Respiratory History: Reports: None Gastrointestinal History: Reports: Colon Polyp, Other (See Below) Other Gastrointestinal History: ULCERATIVE COLITIS Genitourinary History: Reports: None Musculoskeletal History: Reports: Back Pain, Chronic Other Musculoskeletal History: crushed vertabrea. CYST TO SPINE REMOVED Neurological History: Reports: Migraines Psychiatric History: Reports: None Endocrine/Metabolic History: Reports: Obesity/BMI 30+ Hematologic History: Reports: Anticoagulation Therapy Immunologic History: Reports: None Oncologic (Cancer) History: Reports: None Dermatologic History: Reports: None - Infectious Disease History Infectious Disease History: Reports: Measles - Past Surgical History Head Surgeries/Procedures: Reports: None HEENT Surgical History: Reports: None Cardiovascular Surgical History: Reports: Coronary Artery Stent, Pacer GI Surgical History: Reports: Appendectomy, Colonoscopy Musculoskeletal Surgical History: Reports: Other (See Below) Other Musculoskeletal Surgeries/Procedures:: 2 back surgeries Social & Family History - Family History Family Medical History: No Pertinent Family History - Caffeine Use Caffeine Use: Reports: None Other Caffeine Use: RARE - Living Situation & Occupation Occupation: Other ([employer]) ED ROS GENERAL - Review of Systems Review Of Systems: Comprehensive ROS is negative, except as noted in HPI. ED EXAM,LOWER BACK PAIN/INJURY - Physical Exam Exam: See Below Exam Limited By: No Limitations General Appearance: Alert, WD/WN, No Apparent Distress, Obese Throat/Mouth: Normal Voice Head: Atraumatic, Normocephalic Neck: Normal Inspection, Supple, Non-Tender Respiratory/Chest: No Respiratory Distress, Lungs Clear, Normal Breath Sounds, No Accessory Muscle Use, Chest Non-Tender Cardiovascular: Normal Peripheral Pulses, Regular Rate, Rhythm GI/Abdominal: Normal Bowel Sounds, Soft, Non-Tender Back Exam: Decreased Range of Motion, Paraspinal Tenderness (Generalized thoracic and lumbar regional tenderness). No: CVA Tenderness (L), CVA Tenderness (R), Vertebral Tenderness Extremities: Normal Inspection, Normal Range of Motion, Non-Tender, No Pedal Edema, Normal Capillary Refill Neurological: Alert, Normal Dorsiflexion, CN II-XII Intact, Normal Plantar Flexion, Normal Gait, No Motor/Sensory Deficits, Oriented x 3 Psychiatric: Normal Affect, Normal Mood Skin Exam: Warm, Dry Course - Orders/Labs/Meds Meds: Medications Discontinued Medications Generic Name Dose Route Start Last Admin Trade Name Olimpia PRN Reason Stop Dose Admin Ketorolac Tromethamine 30 mg 06/17/21 09:34 Ketorolac 30 Mg/Ml Sdv IM 06/17/21 09:35 ONETIME ONE - Re-Assessments/Exams Free Text/Narrative Re-Assessment/Exam: 06/17/21 09:45 There has been no injury, and no symptoms concerning for cauda equina syndrome or other nerve or spinal cord compromise, therefore I find no indication for x- ray or imaging in the emergency department setting at this time. Departure - Departure Time of Disposition: 09:53 Disposition: Home, Self-Care 01 Condition: Good Clinical Impression: Acute exacerbation of chronic low back pain Chronic thoracic back pain Qualifiers: Back pain laterality: bilateral Qualified Code(s): M54.6 - Pain in thoracic spine; G89.29 - Other chronic pain - Discharge Information *PRESCRIPTION DRUG MONITORING PROGRAM REVIEWED*: No *COPY OF PRESCRIPTION DRUG MONITORING REPORT IN PATIENT UYEN: No Instructions: Acute Back Pain, Adult, Chronic Pain, Adult Forms: ED Department Discharge Additional Instructions: Rx: Eldora (Hydrocodone) 5mg/325mg *Do not drive while taking this medication, it may cause drowsiness. Use a stool softener, eat prunes, or drink prune juice with this medication to avoid constipation. Light activity as tolerated. Follow up in clinic with your primary doctor next week if your back pain is not improving. I have read and agree with the documentation that has been completed regarding this visit. By signing this record, I attest that the documentation was completed in my physical presence and is an accurate record of the encounter.
[2021-06-17 09:54] VITALS: BP 130/83; PULSE 77
== END 2021-06-17 09:55 | disposition home or self-care (01) ==
LOC: DL.ED 08:27
DX: G89.29 Other chronic pain (principal); M54.50 Low back pain, unspecified; M54.6 Pain in thoracic spine; I48.91 Unspecified atrial fibrillation; I25.10 Atherosclerotic heart disease of native coronary artery without angina pectoris; I11.0 Hypertensive heart disease with heart failure; I50.9 Heart failure, unspecified; E78.00 Pure hypercholesterolemia, unspecified; E66.9 Obesity, unspecified; Z68.34 Body mass index [BMI] 34.0-34.9, adult; Z95.0 Presence of cardiac pacemaker; Z79.01 Long term (current) use of anticoagulants; Z79.899 Other long term (current) drug therapy
CPT/HCPCS: 96372; 99283; J1885; 99284

== ENCOUNTER 2021-09-18 07:16 | Emergency (ER) | payer MEDICARE, MEDICAID ==
[2021-09-18 07:42] VITALS: BP 160/99; PULSE 80
[2021-09-18] MEDS ORDERED: cefTRIAXone 1 GM, Lidocaine 1% 2.1 ML IM ONE ×2 (07:51)
== END 2021-09-18 08:08 | disposition home or self-care (01) ==
LOC: DL.ED 07:16
DX: J01.40 Acute pansinusitis, unspecified (principal); I10 Essential (primary) hypertension; E78.00 Pure hypercholesterolemia, unspecified; E66.9 Obesity, unspecified; Z68.33 Body mass index [BMI] 33.0-33.9, adult; Z79.899 Other long term (current) drug therapy
CPT/HCPCS: 96372; 99283; J0696

== ENCOUNTER 2022-05-01 06:19 | Emergency (ER) | payer MEDICARE, MEDICAID ==
[2022-05-01 06:39] VITALS: BP 159/97; PULSE 86
[2022-05-01] MEDS ORDERED: cefTRIAXone 1 GM, Lidocaine 1% 2.1 ML IM ONE ×2 (06:40)
== END 2022-05-01 06:45 | disposition home or self-care (01) ==
LOC: DL.ED 06:19
DX: J01.40 Acute pansinusitis, unspecified (principal); I11.0 Hypertensive heart disease with heart failure; I50.9 Heart failure, unspecified; I25.10 Atherosclerotic heart disease of native coronary artery without angina pectoris; I48.91 Unspecified atrial fibrillation; E78.00 Pure hypercholesterolemia, unspecified; E66.9 Obesity, unspecified; Z79.899 Other long term (current) drug therapy
CPT/HCPCS: 96372; 99283; J0696

== ENCOUNTER 2022-06-24 11:19 | Emergency (ER) | payer MEDICARE, MEDICAID ==
[2022-06-24 11:37] VITALS: BP 125/89; PULSE 82
[2022-06-24] MEDS ORDERED: methylPREDNISolone Sodium Succinate 125 MG/2 ML SDV IM ONE (12:01)
== END 2022-06-24 12:26 | disposition home or self-care (01) ==
LOC: DL.ED 11:19
DX: J01.91 Acute recurrent sinusitis, unspecified (principal); I48.91 Unspecified atrial fibrillation; I25.10 Atherosclerotic heart disease of native coronary artery without angina pectoris; I11.0 Hypertensive heart disease with heart failure; I50.9 Heart failure, unspecified; E78.00 Pure hypercholesterolemia, unspecified; E66.9 Obesity, unspecified; Z68.31 Body mass index [BMI] 31.0-31.9, adult; Z79.01 Long term (current) use of anticoagulants; Z79.899 Other long term (current) drug therapy
CPT/HCPCS: 96372; 99283; J2930

== ENCOUNTER 2023-07-08 13:35 | Emergency (ER) | payer MEDICARE, MEDICAID ==
[2023-07-08 14:19] VITALS: BP 109/80; PULSE 78
== END 2023-07-08 15:44 | disposition home or self-care (01) ==
LOC: DL.ED 13:35
DX: R60.0 Localized edema (principal); I11.0 Hypertensive heart disease with heart failure; I50.9 Heart failure, unspecified; I25.10 Atherosclerotic heart disease of native coronary artery without angina pectoris; E78.00 Pure hypercholesterolemia, unspecified; I48.91 Unspecified atrial fibrillation; E66.9 Obesity, unspecified; Z79.01 Long term (current) use of anticoagulants; Z79.899 Other long term (current) drug therapy; Z95.1 Presence of aortocoronary bypass graft
CPT/HCPCS: 99283

== ENCOUNTER 2024-06-12 12:24 | Emergency (ER) | payer MEDICARE, MEDICAID ==
[2024-06-12 12:39] VITALS: BP 140/80; PULSE 87
[2024-06-12 13:13] LABS: BASOPHILS PERCENT AUTO 0.3 % (0.0-1.0); EOSINOPHILS PERCENT AUTO 2.9 % (1.0-3.0); HEMATOCRIT 36.9 % (40.0-54.0); HEMOGLOBIN 12.1 g/dL (14.0-18.0); LYMPHOCYTES PERCENT AUTO 13.4 % (20.5-50.1); MEAN CORPUSCULAR HEMOGLOBIN 31.3 pg (27.0-34.0); MEAN CORPUSCULAR HGB CONC 32.8 g/dL (33.0-35.0); MEAN CORPUSCULAR VOLUME 95.6 fL (80-100); MONOCYTES PERCENT AUTO 11.2 % (2-8); NEUTROPHILS PERCENT AUTO 72.2 % (42.2-75.2); PLATELET COUNT,PLT 206 10^3/uL (150-450); RED BLOOD CELL COUNT 3.86 10^6/uL (4.6-6.2)
[2024-06-12] MEDS: Cefuroxime 250 MG Tab PO ONE (13:23)
[2024-06-12 13:31] LABS: INR 1.1 (0.9-1.2); PROTHROMBIN TIME 11.4 SEC (9.0-12.0); PTT,PARTIAL THROMBOPLSTIN TIME 23.2 SEC (22.0-34.0)
== END 2024-06-12 13:45 | disposition home or self-care (01) ==
LOC: DL.ED 12:24
DX: R04.0 Epistaxis (principal); J01.91 Acute recurrent sinusitis, unspecified; I48.91 Unspecified atrial fibrillation; I25.10 Atherosclerotic heart disease of native coronary artery without angina pectoris; I11.0 Hypertensive heart disease with heart failure; I50.9 Heart failure, unspecified; E78.00 Pure hypercholesterolemia, unspecified; E66.9 Obesity, unspecified; Z90.49 Acquired absence of other specified parts of digestive tract; Z79.01 Long term (current) use of anticoagulants; Z79.899 Other long term (current) drug therapy; Z68.31 Body mass index [BMI] 31.0-31.9, adult
CPT/HCPCS: 36415; 85025; 85610; 85730; 99283; A9270

== ENCOUNTER 2025-02-20 13:59 | Emergency (ER) | payer MEDICARE, MEDICAID ==
[2025-02-20 14:33] VITALS: BP 125/85; PULSE 100
== END 2025-02-20 14:47 | disposition left against medical advice (07) ==
LOC: DL.ED 13:59
DX: G89.29 Other chronic pain (principal); M54.50 Low back pain, unspecified; I11.0 Hypertensive heart disease with heart failure; I50.9 Heart failure, unspecified; E78.00 Pure hypercholesterolemia, unspecified; E66.9 Obesity, unspecified; Z79.01 Long term (current) use of anticoagulants; Z79.899 Other long term (current) drug therapy; Z90.49 Acquired absence of other specified parts of digestive tract; Z68.29 Body mass index [BMI] 29.0-29.9, adult
CPT/HCPCS: 99283; A9270